=== PATIENT | male | born 1980 | race Asian ===

== ENCOUNTER 2025-01-31 21:38 | Emergency (ER) | payer OTHER ==
[~2025-01-31] VITALS: Ht 170.2 cm; Wt 70.4 kg
[2025-01-31 22:33] VITALS: TEMP 97.5
[2025-01-31 23:33] VITALS: BP 140/89; PULSE 67; RESP 18; O2SAT 99
== END 2025-02-01 01:59 ==
LOC: EMS 21:38
DX: S62.334A Displaced fracture of neck of fourth metacarpal bone, right hand, initial encounter for closed fracture (principal); Y04.0XXA Assault by unarmed brawl or fight, initial encounter; Y93.89 Activity, other specified; Y92.89 Other specified places as the place of occurrence of the external cause; Y99.8 Other external cause status
CPT/HCPCS: 99284; 73110-TC; 73130-TC; Z7502